=== PATIENT | female | born 1985 | race Caucasian/White ===

== ENCOUNTER 2021-11-08 16:17 | Emergency (ER) | payer BC ==
[~2021-11-08] VITALS: Ht 162.6 cm; Wt 64.4 kg
[2021-11-08 16:27] VITALS: BP 156/89
--- NOTE | 2021-11-08 17:17 | NUR ---
36 Y/O FEMALE BIB C/O SPOTTING AND ABD CRAMPING 8/10 TO THE LOWR ABDOMEN AND LOWER BACK. [id number], STATES THEY ARE 5 WEEKS . NKA PMH: DENIES
--- NOTE | 2021-11-08 18:06 | NUR ---
WALKED URINE SPECIMEN TO LAB
[2021-11-08 18:40] LABS: BASOPHILS % (AUTO) 0.3 % (0.0-2.0); EOSINOPHILS # (AUTO) 0.1 K/uL (0-0.4); EOSINOPHILS % (AUTO) 1.1 % (0.0-4.0); HEMATOCRIT 32.9 % (36-48); HEMOGLOBIN 10.4 g/dL (12.0-16.0); LYMPHOCYTES # (AUTO) 1.9 K/uL (2.5-16.5); LYMPHOCYTES % (AUTO) 22.7 % (20.5-51.1); MEAN CORPUSCULAR HEMOGLOBIN 21 pg (27-31); MEAN CORPUSCULAR HGB CONC 32 g/dL (33-37); MEAN CORPUSCULAR VOLUME 67.9 fL (80-94); MONOCYTES # (AUTO) 0.5 K/uL (0.8-1.0); MONOCYTES % (AUTO) 5.5 % (1.7-9.3); NEUTROPHILS # (AUTO) 5.8 K/uL (1.8-7.7); NEUTROPHILS % (AUTO) 70.4 % (42.2-75.2); PLATELET COUNT (AUTO) 312 K/uL (140-450); RED BLOOD CELL COUNT(AUTO) 4.85 MIL/uL (4.20-5.40); RED CELL DISTRIBUTION WIDTH 15.4 % (11.6-13.7); WHITE BLOOD COUNT (AUTO) 8.3 K/uL (4.8-10.8)
[2021-11-08 18:54] LABS: BILIRUBIN,URINE NEGATIVE (NEGATIVE); BLOOD, URINE 3+ (NEGATIVE); COLOR,URINE YELLOW (YELLOW); LEUKOCYTE ESTERASE ,URINE TRACE (NEGATIVE); NITRITE, URINE NEGATIVE (NEGATIVE); UGLUCOSE NEGATIVE (NEGATIVE)
[2021-11-08 18:57] LABS: APPEARANCE,URINE HAZY (CLEAR)
--- NOTE | 2021-11-08 19:05 | NUR ---
PT STATED THAT THEY HAVE SMALL CLOTS IN PAD, DR GOMEZ MADE AWARE
[2021-11-08 19:11] LABS: ALBUMIN 4.2 g/dL (3.4-5.0); ANION GAP 10.8 (8-16); CARBON DIOXIDE 27.9 mmol/L (21-32); CREATININE 0.7 mg/dL (0.6-1.3); POTASSIUM 3.7 mmol/L (3.5-5.1); TOTAL BILIRUBIN 0.5 mg/dL (0.0-1.0)
--- NOTE | 2021-11-08 19:15 | NUR ---
REPORT RECEIVED FROM ELIA KRAMER RN
--- NOTE | 2021-11-08 19:22 | NUR ---
Pt report given to GAVIN OLSON. Transfer of care at this time.
[2021-11-08 20:20] VITALS: BP 141/78
--- NOTE | 2021-11-08 20:20 | NUR ---
DPatient discharged with v/s stable. Written and verbal after care instructions given and explained. Patient verbalized understanding. Ambulatory with steady gait. All questions addressed prior to discharge. Advised to follow up with PMD.
== END 2021-11-08 20:20 | disposition home or self-care (01) ==
LOC: MED 16:17
DX: N93.9 Abnormal uterine and vaginal bleeding, unspecified (principal)
CPT/HCPCS: 36415; 80053; 81001; 81025; 84702; 85025; 87086; 99283